=== PATIENT | female | born 1965 | race Caucasian/White ===

== ENCOUNTER 2020-05-23 11:44 | Emergency (ER) | payer BC ==
[~2020-05-23] VITALS: Ht 177.8 cm; Wt 73.1 kg
[~2020-05-23 11:44] MED LIST: HYDR12.58 PO; LISI-334 PO; SIMV40TA18 PO
--- NOTE | 2020-05-23 12:02 | PHYS DOC ---
Past Medical History Past Medical History: High Cholesterol, Hypertension Past Surgical History: Hysterectomy, Other Additional Past Surgical Histo: GOITER REMOVED OFF THYROID Alcohol Use: Rarely Drug Use: None General Adult HPI: HPI: Patient is a 55 year old FEMALE who presents with states this morning at 1030 she had gotten a fight with her and decided to take 8-10 Xanax. She states that she was not suicidal but she took it so she could relax. The Xanax were 0.5 mg each. Patient denies pain, shortness of breath, chest pain, dizziness, vision changes, headache, fever, cough, abdominal pain, nausea, vomiting, diarrhea, numbness or tingling. She states she is just very relaxed. She is brought in by EMS. Patient has a history of high cholesterol, hypertension, goiter removal, hysterectomy. Review of Systems: Review of Systems: Constitutional: Denies fever or chills. [] Eyes: Denies change in visual acuity. [] HENT: Denies nasal congestion or sore throat. [] Respiratory: Denies cough or shortness of breath. [] Cardiovascular: Denies chest pain or edema. [] GI: Denies abdominal pain, nausea, vomiting, bloody stools or diarrhea. [] : Denies dysuria. [] Musculoskeletal: Denies back pain or joint pain. [] Integument: Denies rash. [] Neurologic: Denies headache, focal weakness or sensory changes. Sleepy. [] Endocrine: Denies polyuria or polydipsia. [] Lymphatic: Denies swollen glands. [] Psychiatric: Denies depression or anxiety. Overdose. [] Heart Score: Risk Factors: Risk Factors: DM, Current or recent (<one month) smoker, HTN, HLP, family history of CAD, obesity. Risk Scores: Score 0 - 3: 2.5% MACE over next 6 weeks - Discharge Home Score 4 - 6: 20.3% MACE over next 6 weeks - Admit for Clinical Observation Score 7 - 10: 72.7% MACE over next 6 weeks - Early Invasive Strategies Allergies: Allergies: Allergies Coded Allergies Type Severity Reaction Last Updated Verified Penicillins Allergy Intermediate 06/25/14 No Physical Exam: PE: Constitutional: Well developed, well nourished, no acute distress, non-toxic appearance. Sleepy. [] HENT: Normocephalic, atraumatic, bilateral external ears normal, oropharynx moist, no oral exudates, nose normal. [] Eyes: PERRLA, EOMI, conjunctiva normal, no discharge. [] Neck: Normal range of motion, no tenderness, supple, no stridor. [] Cardiovascular:Heart rate regular rhythm, no murmur [] Lungs & Thorax: Bilateral breath sounds clear to auscultation [] Abdomen: Bowel sounds normal, soft, no tenderness, no masses, no pulsatile ma sses. [] Skin: Warm, dry, no erythema, no rash. [] Back: No tenderness, no CVA tenderness. [] Extremities: No tenderness, no cyanosis, no clubbing, ROM intact, no edema. [] Neurologic: Alert and oriented X 3, normal motor function, normal sensory function, no focal deficits noted. [] Psychologic: Affect normal, judgement normal, mood normal. [] EKG: EK and normal sinus rhythm. Read by Dr. Killian [] Radiology/Procedures: Radiology/Procedures: [] Impression: [facility] [address] [place] [address] IMAGING REPORT Signed PATIENT: MARINA GRADY ACCOUNT: [id number] : 1965 LOCATION: ER AGE: 55 SEX: F EXAM STATUS: PRE ER ORD. PHYSICIAN: MILENA NORWOOD APRN REASON: OVER DOSE PROCEDURE: PORTABLE CHEST 1V Single AP view of the chest. Comparison: None. Indication: Overdose Findings: The heart is at the upper limits normal. There is no pneumothorax or effusion. No air space or interstitial disease. Impression: 1. No acute cardiopulmonary process. Electronically signed by: Lv Lewis MD (05/23/2020 12:12 PM) [id number] DICTATED and SIGNED BY: LV LEWIS MD DATE: 05/23/20 1212 Course & Med Decision Making: Course & Med Decision Making Pertinent Labs and Imaging studies reviewed. (See chart for details) Alert and oriented. Speaks in full complete sentences. Patient is laying with her eyes closed and states she is sleepy but she is easily arousable and answers all my questions appropriately. PERRLA. Skin pink warm and dry. Abdomen soft and nontender. Lungs are clear to auscultation. She is 100% on room air and breathing 18 times a minute. Lissa RN called poison control of which stated that she just needs to be observed for the next 6 to 8 hours. They stated that when she is alert and awake enough she can be talked to the psychiatrist. They state to watch out for hypotension of which can be corrected with IV fluids. They stated nothing else is needed. [] 1545: I have spoken to Slava with PAT team and he states he will send Liza in to see the patient at 1800. At 1830 it will be 8 hours since ingestion. Patient remained stable. Vital signs remained stable. Patient has been sleeping but she will awaken and talk on her cell phone. 1845: Liza has seen the patient and a safety plan is made. Patient has been o bserved for over 8 hours. Patient is stable and in no distress. Dragon Disclaimer: Dragon Disclaimer: This electronic medical record was generated, in whole or in part, using a voice recognition dictation system. Departure Departure Impression: Primary Impression: Overdose Qualified Codes: T50.901A - Poisoning by unspecified drugs, medicaments and biological substances, accidental (unintentional), initial encounter Disposition: HOME, SELF-CARE Condition: STABLE Referrals: LA ODEN MD (PCP) Patient Instructions: Overdose, Adult Additional Instructions: Follow up with your primary care physician. Only take medications as they are prescribed. Justicifation of Admission Dx: Justifications for Admission: Justification of Admission Dx: N/A MILENA NORWOOD APRN May 23, 2020 12:02
[2020-05-23 12:14] LABS: BASO % 1 % (0-3); EOS # 0.1 x10^3/uL (0.0-0.7); EOS % 4 % (0-3); HEMATOCRIT 42.9 % (36.0-47.0); HEMOGLOBIN 14.5 g/dL (12.0-15.5); LYMPH # 0.5 x10^3/uL (1.0-4.8); LYMPH % 13 % (24-48); MEAN CORPUSCULAR HEMOGLOBIN 28 pg (25-35); MEAN CORPUSCULAR HGB CONC 34 g/dL (31-37); MEAN CORPUSCULAR VOLUME 83 fL (79-100); MONO # 0.2 x10^3/uL (0.0-1.1); MONO % 6 % (0-9); NEUT % 77 % (31-73); PLATELET COUNT 222 x10^3/uL (140-400); RED BLOOD COUNT 5.16 x10^6/uL (3.50-5.40); RED CELL DISTRIBUTION WIDTH 13.7 % (11.5-14.5); WHITE BLOOD COUNT 3.9 x10^3/uL (4.0-11.0)
--- NOTE | 2020-05-23 12:15 | RAD ---
Single AP view of the chest. Comparison: None. Indication: Overdose Findings: The heart is at the upper limits normal. There is no pneumothorax or effusion. No air space or interstitial disease. Impression: 1. No acute cardiopulmonary process. Electronically signed by: Lv Lewis MD (05/23/2020 12:12 PM) [id number]
[2020-05-23 12:23] LABS: PROTHROMBIN TIME PATIENT 13.1 SEC (11.7-14.0)
[2020-05-23 12:25] LABS: CALCIUM 9.1 mg/dL (8.5-10.1); GFR 57.4; POTASSIUM 3.9 mmol/L (3.5-5.1)
[2020-05-23 12:30] LABS: ACETAMIN < 2 mcg/ml (10-30); ETHANOL < 10 mg/dL (0-10); SALIC < 2.8 mg/dL (2.8-20.0)
[2020-05-23 12:31] LABS: ALBUMIN 3.5 g/dL (3.4-5.0); DIRECT BILIRUBIN 0.1 mg/dL (0.0-0.2); TOTAL BILIRUBIN 0.5 mg/dL (0.2-1.0); TOTAL PROTEIN 7.4 g/dL (6.4-8.2)
[2020-05-23 13:06] LABS: BILIRUBIN,URINE NEGATIVE (NEG); CLARITY,URINE CLEAR; COLOR,URINE YELLOW; NITRITE,URINE NEGATIVE (NEG); PH,URINE 6.5 (<5.0-8.0); PROTEIN,URINE NEGATIVE (NEG-TRACE)
[2020-05-23 13:13] LABS: BARBITURATES NEG (NEG); BENZODIAZEPINES POS (NEG); CANNABINOIDS NEG (NEG); COCAINE NEG (NEG); METHADONE NEG (NEG); OPIATES NEG (NEG); PHENCYCLIDINE NEG (NEG)
[2020-05-23 13:14] LABS: AMPHETAMINE/METHAMPHETAMINE NEG (NEG)
[2020-05-23 13:25] LABS: BACTERIA,URINE 0 /HPF (0-FEW); RBC,URINE RARE /HPF (0-2); WBC,URINE RARE /HPF (0-4)
[2020-05-23 13:56] LABS: ACETAMIN < 2 mcg/ml (10-30)
--- NOTE | 2020-05-23 15:55 | EKG ---
[facility] [address] [place] [address] Test Date: 2020-05-23 Test Time: 11:49:48 Pat Name: MARINA GRADY Department: Room: Gender: F Textile Designer: : 1965 Requested By: MILENA NORWOOD Order Number: [id number] Reading MD: Measurements Intervals [place] Rate: 90 P: 21 MT: 170 QRS: 25 QRSD: 86 T: 23 QT: 374 QTc: 462 Interpretive Statements SINUS RHYTHM NORMAL ECG RI6.01 No previous ECG available for comparison
[2020-05-23 18:45] VITALS: BP 205/82
== END 2020-05-23 19:02 | disposition home or self-care (01) ==
LOC: ER 11:44
DX: T42.4X1A Poisoning by benzodiazepines, accidental (unintentional), initial encounter (principal); E78.00 Pure hypercholesterolemia, unspecified; I10 Essential (primary) hypertension; Z90.710 Acquired absence of both cervix and uterus; Z98.890 Other specified postprocedural states; Y92.89 Other specified places as the place of occurrence of the external cause
CPT/HCPCS: 36415; 71045; 80048; 80076; 80307; 80329; 81001; 84484; 85025; 85610; 93005; 99285; G0480

== ENCOUNTER → 2020-08-10 | Outpatient (CLI) | payer BC ==
--- NOTE | 2020-08-10 13:11 | KCIC ---
EXAM: Bilateral digital screening mammogram with tomosynthesis. HISTORY: 55-year-old female presents for screening mammography. TECHNIQUE: Full-field digital craniocaudal and mediolateral oblique 2D and 3D tomosynthesis images of both breasts are obtained for evaluation. Computer aided detection with FindlineD software version 9.3 was applied. COMPARISON: 08/24/2015 BREAST PARENCHYMAL DENSITY: Level B - Scattered fibroglandular densities. FINDINGS: There is no new suspicious mass, microcalcification or region of architectural distortion. There are stable areas of nodularity and asymmetry within both breasts, allowing for differences in imaging technique. IMPRESSION: BI-RADS Category 2: Benign finding(s). RECOMMENDATION: Annual mammography is recommended. If your mammogram demonstrates that you have dense breast tissue, which could hide abnormalities, and if you have other risk factors for breast cancer that have been identified, you might benefit from supplemental screening tests that may be suggested by your ordering physician. Dense breast tissue, in and of itself, is a relatively common condition. This information is not provided to cause undue concern, but rather to raise your awareness and to promote discussion with your physician regarding the presence of other risk factors, in addition to dense breast tissue. A report of your mammography results will be sent to you and your physician. You should contact your physician if you have any questions or concerns regarding this report. Mammography is a sensitive method for finding small breast cancers, but it does not detect them all and is not a substitute for careful clinical examination. A negative mammogram does not negate a clinically suspicious finding and should not result in delay in biopsying a clinically suspicious abnormality. PQRS compliance statement - Patient information was entered into a reminder system with a target due date for the next mammogram. "Our facility is accredited by the [employer] Mammography Program." Electronically signed by: Radha Soto MD (08/10/2020 1:08 PM) [id number]
== END | disposition home or self-care (01) ==
LOC: KCIC MAMMO 12:25
PROVIDERS: ATTEND Family Medicine
DX: Z12.31 Encounter for screening mammogram for malignant neoplasm of breast (principal); N64.89 Other specified disorders of breast
CPT/HCPCS: 77063; 77067